=== PATIENT | male | born 1990 | race Asian ===

== ENCOUNTER 2016-12-26 18:08 | Emergency (ER) | payer BC ==
[~2016-12-26] VITALS: Ht 177.8 cm; Wt 86.2 kg
== END 2016-12-26 18:48 | disposition home or self-care (01) ==
LOC: ED 18:08
DX: K02.9 Dental caries, unspecified (principal); R68.84 Jaw pain
CPT/HCPCS: 99282; J0696

== ENCOUNTER 2017-02-16 17:36 | Emergency (ER) | payer BC ==
[~2017-02-16] VITALS: Ht 177.8 cm; Wt 83.9 kg
== END 2017-02-16 18:26 | disposition home or self-care (01) ==
LOC: ED 17:36
DX: R68.84 Jaw pain (principal); K02.9 Dental caries, unspecified; K04.7 Periapical abscess without sinus; K05.30 Chronic periodontitis, unspecified
CPT/HCPCS: 96372; 99282; J0696